=== PATIENT | female | born 1985 ===

== ENCOUNTER 2016-07-25 21:21 | Emergency (ER) | payer BC, OTHER ==
[2013-08-10 17:10] VITALS: BMI 21.6
--- NOTE | 2016-07-25 22:13 | OBHP ---
Datetime: 07/25/2016 22:03 IP Adm Impression: , intrauterine IP Admit Plan: Observation/Evaluation; Discharge home Admit Comment, IP Provider: Pt is a 30yo edc 08/23 who presents for NST. Pt states had ob ap pt today and Dr. Boateng was uncertain if there was an arhythmia. He advised pt to go to [facility] for fe sandra monitoring. Denies ctxs, pprom, vag bleeding or decreased fm. pt states she has had us an d nl growth thus far obhx: x1; induction for iugr pmhx: denies pshx: removal of iud in or shx: denies etoh, drugs or tobacco nkda medic: pnv i: 35.6wks Reactive, Categ 1 FMS p: d/c home ptl precautions f/u in office as sched'd Pelvic Type - PN: Adequate Abdomen - PN: Normal Lungs - PN: Normal Heart - PN: Normal Neurologic - PN: Normal HEENT - PN: Normal General - PN: Normal FHR - Baseline A Provider: 130 EGA AdmitDate IP: 35.6 Vital Signs Provider: Within Normal Limits IP Chief Complaint: Other NICHD Variability Prov Fetus A: Moderate 6-25bpm NICHD Accel Fetus A IP Provider: [id number] FHR Category Provider Fetus A: Category I NICHD Decel Fetus A IP Provider: None Genitourinary Exam: Normal
== END 2016-07-25 22:20 | disposition home or self-care (01) ==
LOC: H.EROB2 21:21
DX: O47.03 False labor before 37 completed weeks of gestation, third trimester (principal); Z3A.35 35 weeks gestation of pregnancy

== ENCOUNTER 2016-08-12 22:14 | Emergency (ER) | payer BC, OTHER ==
[2013-08-10 17:10] VITALS: BMI 21.6
--- NOTE | 2016-08-12 23:53 | OBHP ---
Datetime: 08/12/2016 23:47 IP Adm Impression: Term, intrauterine ; No Active Labor IP Admit Plan: Observation/Evaluation; Discharge home Admit Comment, IP Provider: Fiordaliza the patient is a 30-year-old 2 para 1 estimated due date 08/23 estimated gestational age 38+ weeks patient presents to labor and delivery complaining of pelvi c pressure and occasional cramps. Patient denies any vaginal bleeding leakage of fluid she reports go od movement. care has been unremarkable. Past medical history none Past surgical history hysteroscopic removal of IUD No known drug allergies Social history denies alcohol tobacco use care unremarkable administered by Dr. Boateng obstetrical history one normal spontaneous vaginal delivery no complications review of systems patient denies headache chest pain shortness of breath palpitations dysuria. col d intolerance easy bruisability constipation nausea discussed skeletal complaints vital signs stable afebrile physical exam see notes intrauterine at 38+ weeks late in labor external monitor observation reviewed records from dr. boateng office we'll discharge home patient instructed to follow-up p m.d. this week labor precautions provided f etal movement counts Pelvic Type - PN: Adequate Extremities - PN: Normal Abdomen - PN: Normal Back - PN: Normal Breast - PN: Not Done Lungs - PN: Normal Heart - PN: Normal Thyroid - PN: Normal Neurologic - PN: Normal HEENT - PN: Normal General - PN: Normal Weight - Estimated: 7 Presentation-Admit: Vertex FHR - Baseline A Provider: 145 Gestation - Est Wks by US: 38.0 EGA AdmitDate IP: 38.3 Vital Signs Provider: Reviewed IP Chief Complaint: Uterine contractions; Maternal discomfort NICHD Variability Prov Fetus A: Moderate 6-25bpm NICHD Accel Fetus A IP Provider: [id number] FHR Category Provider Fetus A: 1 NICHD Decel Fetus A IP Provider: None Dilatation, Provider: 1 Effacement, Provider: 50 Station, Provider: -2 Genitourinary Exam: Normal DTRs - PN: Normal
== END 2016-08-12 23:00 | disposition home or self-care (01) ==
LOC: H.EROB2 22:14
DX: O47.1 False labor at or after 37 completed weeks of gestation (principal); Z3A.39 39 weeks gestation of pregnancy

== ENCOUNTER 2016-08-17 17:44 | Inpatient (IN) | payer BC, OTHER ==
--- NOTE | 2016-08-17 20:25 | OBHP ---
Datetime: 08/17/2016 20:15 IP Admit Plan: Admit to unit Admit Comment, IP Provider: Sonya patient is a 30-year-old 2 para 1 estimated due date 2016 estimated gestational age 39 weeks patient presents to labor and delivery For induction of labor Patient was seen for her PNT today was noted to be 2-3 cm in the office. Patient denies any vaginal b leeding leakage of fluid she reports good movement. care has been unremarkable. Past medical history none Past surgical history hysteroscopic removal of IUD No known drug allergies Social history denies alcohol tobacco use care unremarkable administered by Dr. Boateng obstetrical history one normal spontaneous vaginal delivery no complications review of systems patient denies headache chest pain shortness of breath palpitations dysuria. col d intolerance easy bruisability constipation nausea discussed skeletal complaints vital signs stable afebrile physical exam see notes Intrauterine at 38 weeks adequate pelvis, vertex presentation, estimated weight 7-1/2-8 poundsExternal monitor, routine labsanticipate normal vaginal delivery Pelvic Type - PN: Adequate Extremities - PN: Normal Abdomen - PN: Normal Back - PN: Normal Breast - PN: Normal Lungs - PN: Normal Heart - PN: Normal Thyroid - PN: Normal Neurologic - PN: Normal HEENT - PN: Normal General - PN: Normal Weight - Estimated: 8 Presentation-Admit: Vertex FHR - Baseline A Provider: 145 Gestation - Est Wks by US: 39.0 EGA AdmitDate IP: 39.1 Vital Signs Provider: Reviewed IP Chief Complaint: Uterine contractions; Maternal discomfort NICHD Variability Prov Fetus A: Moderate 6-25bpm NICHD Accel Fetus A IP Provider: [id number] FHR Category Provider Fetus A: Category I NICHD Decel Fetus A IP Provider: None Dilatation, Provider: 2 Effacement, Provider: 75 Station, Provider: -2 Genitourinary Exam: Normal DTRs - PN: Normal
[2016-08-17 20:33] VITALS: BMI 31.1
[2016-08-17] MEDS ORDERED: Lactated Ringer's 1,000 ML IV SCH (22:30)
[2016-08-17 23:01] LABS: BASO % 0.4 % (0.0-2.0); EOS # 0.1 K/uL (0.0-0.7); EOS % 0.5 % (0.0-4.0); HEMATOCRIT 31.5 % (34.0-47.0); LYMPH # 1.7 K/uL (1.0-4.3); LYMPH % 14.2 % (20.0-40.0); MEAN CELL VOLUME 83.5 fl (81.0-99.0); MEAN CORPUSCULAR HEMOGLOBIN 25.5 pg (27.0-31.0); MEAN CORPUSCULAR HGB CONC 30.6 g/dL (33.0-37.0); MEAN PLATELET VOLUME 10.3 fl (7.2-11.7); MONO # 1.3 K/uL (0.0-0.8); MONO % 11.1 % (0.0-10.0); NEUT # 8.8 K/uL (1.8-7.0); NEUT % 73.8 % (50.0-75.0); NRBC % 0.2 % (0.0-0.0); RED CELL DISTRIBUTION WIDTH 16.4 % (11.5-14.5)
[2016-08-18 01:49] VITALS: BP 121/79; PULSE 88; TEMP 98.4
[2016-08-18] MEDS ORDERED: Oxytocin 30 units/LR 500ML 500 ML IV ONE ×2 (03:30→09:51)
[2016-08-18] MEDS ORDERED: Lactated Ringer's 2,000 ML IV SCH (06:30)
[2016-08-18] MEDS: Lactated Ringer's 1,000 ML IV SCH ×2 (06:30→08:00)
[2016-08-18] MEDS ORDERED: Fentanyl/Bupivacaine HCl 250 ML EPI ONE (08:58)
[2016-08-18] MEDS ORDERED: OXYTOCIN IV ONE (10:23)
[2016-08-18] MEDS ORDERED: LR IV ONE (10:23)
[2016-08-18] MEDS ORDERED: Oxycodone/Acetaminophen 5/325 mg Tab PO PRN ×4 (10:26→13:24)
--- NOTE | 2016-08-18 10:43 | OBDS ---
MATERNAL INFORMATION Provider Comments: Normal spontaneous vaginal delivery. Patient delivered viable male with Apgars of 9 and 9 at one and 5 minutes respectively. Inf ant delivered via direct OA position. No lacerations, perineum intact. Placenta delivered spontaneous ly. Uterus firm and appropriately hemostatic following delivery. No complications. Estimated blood lo ss 200 mL. LABOR SUMMARY EDC: 08/23/2016 00:00 No. Babies in Womb: 1 LABOR INFORMATION Group B Beta Strep: Negative MEMBRANES Membranes Rupture Method: Spontaneous Amniotic Fluid Color: Clear Amniotic Fluid Amount: Small Amniotic Fluid Odor: None VAGINAL DELIVERY Episiotomy: None Laceration Extension: N/A Laceration Type: None Laceration Repair: Not Applicable
[2016-08-19 08:10] LABS: BASO % 0.4 % (0.0-2.0); EOS # 0.1 K/uL (0.0-0.7); EOS % 0.7 % (0.0-4.0); HEMATOCRIT 28.4 % (34.0-47.0); LYMPH # 1.9 K/uL (1.0-4.3); LYMPH % 17.4 % (20.0-40.0); MEAN CELL VOLUME 82.2 fl (81.0-99.0); MEAN CORPUSCULAR HEMOGLOBIN 26.5 pg (27.0-31.0); MEAN CORPUSCULAR HGB CONC 32.2 g/dL (33.0-37.0); MEAN PLATELET VOLUME 9.9 fl (7.2-11.7); MONO % 9.2 % (0.0-10.0); NEUT % 72.3 % (50.0-75.0); RED CELL DISTRIBUTION WIDTH 15.9 % (11.5-14.5); WHITE BLOOD COUNT 11.1 K/uL (4.8-10.8)
[2016-08-19] MEDS ORDERED: Multivitamin With Minerals Tab PO SCH (09:00)
[2016-08-19] MEDS: Multivitamin With Minerals Tab PO SCH (10:10)
[2016-08-20] MEDS: Multivitamin With Minerals Tab PO SCH (09:00)
--- NOTE | 2016-08-20 12:59 | OBDCSUM ---
Datetime: 08/20/2016 12:57 Discharged to, Provider: Home Follow up at, Provider: [facility]a Disch Instr Activity: Normal activity Disch Instr Diet: Regular Discharge Instructions, Provider: Routine instructions given Discharge Diagnosis, Provider: Term Delivered Discharge Time: 08/20/2016 12:57 Follow up in weeks, Provider: 6 wks Disch Referrals: None Contraception discussed, Prov: Yes Disch Activity Restrictions: No sexual activity; Nothing in vagina - [place], tampons, douche Discharge Comment, Provider: return to hospital if increased bleeding, pain, temp
--- NOTE | 2016-08-20 12:59 | OBPPN ---
Datetime: 08/20/2016 12:56 PP Pain Prov: Within normal limits PP Nausea Prov: Denies PP Flatus Prov: Yes PP Breasts Prov: Normal PP Heart Prov: Normal PP Lungs Prov: Normal PP Abdomen/Uterus Prov: Normal PP Lochia Prov: Normal PP Vulva/Perineum Prov: Normal PP CVA Tenderness Prov: Normal PP Extremities Prov: Normal PP Comments Phys Exam Prov: Fundus firm under umbilicus PP Impression Prov: Normal progression PP Plan Prov: Continue present management PP Progress Note Prov: Patient denies CP, no SOB, no N/V, tolerating PO diet, ambulting, voiding wel l, mild lochia, abdominal pain tolerable with meds, A/P 1. Discharge instructions given 2. Discharge patient IP PP Procedures: None Vital Signs Provider PP: Reviewed; Within Normal Limits
--- NOTE | 2016-10-17 16:00 | OBADHP ---
Datetime: 08/17/2016 20:15 Admit Comment, IP Provider: Tthe patient is a 30-year-old 2 para 1 estimated due date 2016 estimated gestational age 39 weeks patient presents to labor and delivery For induction of labor Patient was seen for her PNT today was noted to be 2-3 cm in the office. Patient denies any vaginal b leeding leakage of fluid she reports good movement. care has been unremarkable. Past medical history none Past surgical history hysteroscopic removal of IUD No known drug allergies Social history denies alcohol tobacco use care unremarkable administered by Dr. Boateng obstetrical history one normal spontaneous vaginal delivery no complications review of systems patient denies headache chest pain shortness of breath palpitations dysuria. col d intolerance easy bruisability constipation nausea discussed skeletal complaints vital signs stable afebrile physical exam see notes Intrauterine at 38 weeks adequate pelvis, vertex presentation, estimated weight 7-1/2-8 poundsExternal monitor, routine labsanticipate normal vaginal delivery Pelvic Type - PN: Adequate Extremities - PN: Normal Abdomen - PN: Normal Back - PN: Normal Breast - PN: Normal Lungs - PN: Normal Heart - PN: Normal Thyroid - PN: Normal Neurologic - PN: Normal HEENT - PN: Normal General - PN: Normal Weight - Estimated: 8 Presentation-Admit: Vertex FHR - Baseline A Provider: 145 Gestation - Est Wks by US: 39.0 Vital Signs Provider: Reviewed IP Chief Complaint: Uterine contractions; Maternal discomfort NICHD Variability Prov Fetus A: Moderate 6-25bpm NICHD Accel Fetus A IP Provider: [id number] FHR Category Provider Fetus A: Category I NICHD Decel Fetus A IP Provider: None Dilatation, Provider: 2 Effacement, Provider: 75 Station, Provider: -2 Genitourinary Exam: Normal DTRs - PN: Normal EGA AdmitDate IP: 39.1 IP Admit Plan: Admit to unit Datetime: 08/12/2016 23:47 IP Adm Impression: Term, intrauterine ; No Active Labor
== END 2016-08-20 15:45 | disposition home or self-care (01) | DRG 766 ==
LOC: H.EROB2 17:44 → H.L&D 22:21 → H.OB/GYN 08-18 13:30
PROVIDERS: ADMIT Obstetrics & Gynecology Gynecology; ATTEND Obstetrics & Gynecology Gynecology
PROC: 10D00Z1 Extraction of Products of Conception, Low, Open Approach (ICD-10-PCS; principal; 2016-08-17)
PROC: 4A1HXCZ Monitoring of Products of Conception, Cardiac Rate, External Approach (ICD-10-PCS; 2016-08-17)
DX: O80 Encounter for full-term uncomplicated delivery (principal); Z37.0 Single live birth; Z3A.39 39 weeks gestation of pregnancy